=== PATIENT | female | born 1995 | race Caucasian/White ===

== ENCOUNTER 2023-06-05 03:45 | Day surgery (SDC) | payer BC, SELFPAY ==
--- NOTE | 2023-06-04 06:31 | PM.IMHP ---
H&P: HPI History of Present Illness Date/Time: 06/04/23 06:31 Chief Complaint: First trimester missed A/B Narrative: This is a 19 1st products missed . Ultrasound improves retained tissue. she will undergo suction dilatation curettage. Risks but bleeding transfusion perforation ureters to other with for laparotomy reviewed.. Meds Home Medications and Allergies Allergies Allergy/AdvReac Type Severity Reaction Status Date / Time azithromycin Allergy Mild Unverified 09/29/08 14:38 Exam Const: General: cooperative, healthy appearing and comfortable Nutritional Appearance: average body habitus Orientation/consciousness: oriented to person, oriented to place and oriented to time HENMT: Head: normal to inspection Resp: Effort & Inspection: normal respiratory effort Cardio: Rate: regular rate Rhythm: regular rhythm Heart sounds: S1 normal heart sound present and S2 normal heart sound present GI: Inspection: normal to inspection : External Female Exam: normal external appearance Speculum Exam - Vagina: normal appearance of the vagina and vaginal bleeding Speculum Exam - Cervix: normal appearance of the cervix and Cervical os open Bimanual exam- vagina & uterus: enlarged Bimanual Exam- Adnexa, other: normal adnexae Assessment and Plan Assessment and plan (1) Incomplete : Code(s): O03.4 - Incomplete spontaneous without complication Status: Acute Plan Suction dilatation curettage
[2023-06-04 08:45] VITALS: BMI 23.6
--- NOTE | 2023-06-04 08:49 | PC.NURSE ---
Report to the Outpatient Waiting Room, entrance under the green pavilion located off [facility], at time 1000 on date 06/05/23. Planned Procedure Time: 1200. Time changes happen often and if your time is changed the preop area will call you the afternoon before. - You and your visitor will be asked to self-screen and do not enter if you have any COVID symptoms. - A mask is optional within the hospital at this time. Patients may have clear liquids (water, carbonated beverages, clear teas, apple juice) until 3 hours prior to surgery with a maximum of 20 ounces. - No food from midnight until time of surgery Take the following medications with a SIP of water the morning of surgery: XANAX IF NEEDED DO NOT STOP ANY OF YOUR OTHER PRESCRIPTION MEDICATIONS PRIOR TO SURGERY ?EXCEPT THE FOLLOWING Medications to discontinue per physician: N/A Date to take last dose: N/A Please no make-up, nail bengali, hairspray, perfume, deodorant, or body powder the day of surgery. No jewelry (including any body piercings) or valuables the day of surgery, leave them at home. Please take a shower or bath the night before, or the morning of, surgery with an antibacterial soap. Wear comfortable, loose fitting clothing. - Jewelry must be removed prior to entering the operating room. Rings and piercings that are not removed may be cut off. - The hospital will not accept responsibility for valuables. - Please leave all valuables, including medications, at home the day of surgery. If you are going home after surgery, a licensed bung driver must drive you home. - NO public transportation without another adult if you receive anesthesia. - We recommend that an adult stay with you for 24 hours following discharge. - We also recommend that you do not drive, make important decision, drink alcoholic beverages, or take any drugs that were not prescribed by your health care provider for at least 24 hours after your discharge time. Follow any additional instructions given to you from your surgeon. If you or anyone in your household have experienced Covid symptoms in the past week, please notify your surgeon or the nurse liaison at the phone number below for possible testing. Telephone instructions given to PT - DARIN NOE and asked if any additional questions and then verbalized understanding. Patient advised to call surgeon office or pre surgery nurse liaison [phone] if any additional questions.
--- NOTE | 2023-06-05 06:15 | WPDHPUPDATE1 ---
History and Physical Update Update Date/Time: 06/05/23 06:15 History and Physical has been reviewed, including an updated exam of the patient. There are NO changes in the patient's condition. Risks, benefits, and alternatives have been discussed and questions answered. Patient agrees to proceed with procedure.
--- NOTE | 2023-06-05 08:41 | P.PNAN_ITS ---
Anes - Initial Pre Proc Eval Procedure: Operation Date: 06/05/23 10:00 Proposed Procedures p Suction Dilation and Curettage - Ad Guevara MD Date/Time: 06/05/23 08:41 Surgeon: Ad Guevara MD Pre Op Diagnosis: incomplete missed ab Patient Data Age: 27 Gender: F Height: 1.68 m Weight: 66.25 kg Allergies Allergy/AdvReac Type Severity Reaction Status Date / Time azithromycin Allergy Mild Swelling Unverified 06/04/23 08:44 amoxicillin [From Augmentin] Allergy Swelling Verified 06/04/23 08:44 clavulanic acid Allergy Swelling Verified 06/04/23 08:44 [From Augmentin] Home Medications Medication Instructions Recorded Confirmed Type alprazolam 0.25 mg tablet (Xanax) 0.25 mg PO TID PRN Anxiety 06/04/23 06/04/23 History hydrocodone 5 mg-acetaminophen 325 1 tablet PO Q4H PRN pain #14 tabs 06/05/23 Rx mg tablet Patient hx anesthesia problems: none Family hx anesthesia problems: none Results Review: All pre-operative results and documents have been reviewed as part of the pre- operative evaluation. [facility] Past Medical History Medical History (Updated 06/05/23 @ 08:42 by Ad Bedolla MD) Incomplete Social History Social History Smoking status: Never smoker Substance use: never Substance use type: does not use Living arrangements: with family Spiritual care concerns: No Anes - Eval Final PreProcedure Day of Procedure 06/05/23 08:41 Patient weight: normal Heart: regular rate and rhythm Lungs: clear to auscultation Airway: Mallampati scale class 1 Neurological: alert and oriented Last oral intake: >/= 8 hours ASA classification: II Emergent: no Anesthetic plan: proceed Anesthesia type and monitoring: general GIVS and standard monitoring Results Review: All pre-operative results and documents have been reviewed as part of the pre- operative evaluation. Informed Consent: The patient's anesthetic plan and its attendant risks and benefits were discussed with the patient/family/POA. Questions were solicited and answers provided to the satisfaction of the patient/family/POA.
[2023-06-05] MEDS: LACTATED RINGERS 1,000 ML 30 ML IV CONT (09:00)
[2023-06-05 09:07] LABS: Hematocrit 43.2 % (37.0-47.0); Hemoglobin 14.5 g/dL (12.0-15.0)
[2023-06-05 09:28] VITALS: BP 106/71; PULSE 86; RESP 18; TEMP 37.5; O2SAT 100
[2023-06-05] MEDS: ACETAMINOPHEN 500 MG TABLET 1000 MG PO (09:31)
[2023-06-05] MEDS: LIDOCAINE HCL 1% LOCAL INJ 10 ML VIAL INFILTRATE (09:56)
[2023-06-05] MEDS: KETOROLAC 30 MG/ML VIAL (*BKC) IV PUSH (09:57)
--- NOTE | 2023-06-05 09:57 | W.PM.PROC2 ---
Procedure Note - Detailed Date of Procedure 06/05/23 Pre-op Diagnosis incomplete missed ab Post-op Diagnosis Same Procedure Performed Suction dilatation and curettage Surgeon Ad Guevara MD Anesthesia MAC and Local Indications this is a 27-year-old female with first-trimester incomplete AB Findings uterus sounded to 10cm. Tissue consistent with products of conception Description of Procedure patient was prepped draped in the normal sterile fashion placed in the dorsal lithotomy position. Under excellent IV sedation weighted speculum placed posterior fornix vagina. Anterior lip of cervix grasped with a tenaculum. Uterus 2.5cc 1% xylocaine anesthesia placed at 2, 4, 8, 10:00 a.m. of the cervix. Uterus sounded to 10cm. Serial dilatation with fragmented dilators performed followed by passage of the 10. Curved suction curette. Moderate amount of tissue was removed. When a good grating sound was heard the instrument was withdrawn. Blood loss was estimated 25cc. All sponge, needle, instrument counts were correct. There were no immediate complications Estimated Blood Loss 25 Drains No Packing No Pathology Yes Complications No immediate complications Condition Stable Disposition PACU
[2023-06-05 10:00] VITALS: BP 101/64; PULSE 93; RESP 14; O2SAT 100
[2023-06-05 10:30] VITALS: BP 103/66; PULSE 70; RESP 14; O2SAT 100
[2023-06-05] MEDS: RHO(D) IMMUNE GLOBULIN 300 MCG/2 ML SYRINGE IM (10:35)
[2023-06-05 11:00] VITALS: BP 93/48; PULSE 72; RESP 14
== END 2023-06-05 11:05 | disposition home or self-care (01) ==
PROVIDERS: Visit Provider Obstetrics & Gynecology
PROC: (CPT 59812; principal; 2023-06-05 10:00)
DX: O03.4 Incomplete spontaneous abortion without complication (principal); Z79.891 Long term (current) use of opiate analgesic
CPT/HCPCS: 59812; 36415; 85014; 85018; 85461; 86850; 86900; 86901; 88305; 90384; A9270; J1885; J2250; J2704; J2790; J3010; J7120